=== PATIENT | male | born 1995 | race Caucasian/White ===

== ENCOUNTER 2021-08-31 04:41 | Emergency (ER) | payer SELFPAY ==
[~2021-08-31] VITALS: Ht 180.3 cm; Wt 124.7 kg
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
--- NOTE | 2021-08-31 05:39 | NUR ---
CALLED [facility] TO FILE A POLICE REPORT[facility]
[2021-08-31] MEDS ORDERED: LIDOCAINE 1%-EPI 1:100,000 20 ML VIAL ONE (05:42)
[2021-08-31] MEDS ORDERED: NAPR-1164 PO (05:45)
[2021-08-31] MEDS ORDERED: TDAP [DIPH/PERTUSSIS/TET] 0.5 ML VIAL IM ONE ×2 (06:00→06:13)
[2021-08-31] MEDS ORDERED: LIDOCAINE 1% INJ 50 ML MDV IJ ONE (06:00)
[2021-08-31] MEDS ORDERED: IBUPROFEN 400 MG TABLET PO ONE (06:00)
--- NOTE | 2021-08-31 06:05 | NUR ---
AT BEDSIDE FOR SUTURING
[2021-08-31] MEDS ORDERED: IBUPROFEN 400 MG TABLET ONE (06:12)
--- NOTE | 2021-08-31 06:33 | NUR ---
Patient discharged to home in stable condition. Written and verbal after care instructions given. Patient verbalizes understanding of instruction. Pt ambulatory with a steady gait
[2021-08-31 06:39] VITALS: BP 154/89
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
== END 2021-08-31 06:50 | disposition home or self-care (01) ==
LOC: ER 04:45
DX: S01.411A Laceration without foreign body of right cheek and temporomandibular area, initial encounter (principal); F17.200 Nicotine dependence, unspecified, uncomplicated; Y04.0XXA Assault by unarmed brawl or fight, initial encounter; Y93.89 Activity, other specified; Y92.89 Other specified places as the place of occurrence of the external cause; Y99.8 Other external cause status
CPT/HCPCS: 12013; 90471; 90715; 99283; J3490

== ENCOUNTER 2021-09-04 09:51 | Emergency (ER) | payer SELFPAY ==
[~2021-09-04] VITALS: Ht 182.9 cm; Wt 122.5 kg
[~2021-09-04 09:51] MED LIST: NAPR-1164 PO
[2021-09-04 10:02] VITALS: BP 123/76
--- NOTE | 2021-09-04 11:09 | NUR ---
SUTURES REMOVED BY MD MAYNARD. PT TOLERATED PROCEDURE WELL. D/C IN STABLE CONDITION.
== END 2021-09-04 11:10 | disposition home or self-care (01) ==
LOC: ER 10:06
DX: S01.81XD Laceration without foreign body of other part of head, subsequent encounter (principal); F12.90 Cannabis use, unspecified, uncomplicated; X58.XXXD Exposure to other specified factors, subsequent encounter